=== PATIENT | male | born 1985 | race American Indian/Alaskan Native ===

== ENCOUNTER 2017-11-08 22:30 | Emergency (ER) | payer SELFPAY ==
[2017-11-08] MEDS ORDERED: NACL 0.9% 1000 ML 1,000 ML IV ONE ×2 (22:41→23:21)
[2017-11-08] MEDS ORDERED: DILAUDID IV ONE (22:41)
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
[2017-11-08 22:52] LABS: Hematocrit 47.2 % (35.5-45.6); Hemoglobin 15.7 gm/dl (11.8-15.2); Mean Corpuscular HGB Conc 33 % (32-34); Mean Corpuscular Hemoglobin 31 pg (28-32); Mean Corpuscular Volume 92 fl (84-94); Platelet Count 187 K/mm3 (140-440); Red Blood Count 5.14 M/mm3 (3.65-5.03)
[2017-11-08 22:56] LABS: INR 0.87 (0.87-1.13); Partial Thromboplastin Time 25.7 Sec. (24.2-36.6)
[2017-11-08] MEDS ORDERED: ZOSYN/NS 4.5GM/100ML 4.5 GM/100 ML VIAL IV SCH (23:00)
[2017-11-08 23:01] LABS: Alanine Aminotransferase 15 units/L (7-56); Albumin 4.6 g/dL (3.9-5); BUN/Creatinine Ratio 11; Blood Urea Nitrogen 10 mg/dL (9-20); Hemolysis Index 8
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
[2017-11-08 23:30] LABS: RBC Morphology Normal; Total Cells Counted 100
[2017-11-08 23:46] VITALS: BP 136/94
[2017-11-09] MEDS ORDERED: DILAUDID ONE (01:31)
== END 2017-11-08 23:52 | disposition other institution (70) ==
LOC: ED 22:30
DX: S31.109A Unspecified open wound of abdominal wall, unspecified quadrant without penetration into peritoneal cavity, initial encounter (principal); F17.200 Nicotine dependence, unspecified, uncomplicated; Z88.2 Allergy status to sulfonamides; W34.00XA Accidental discharge from unspecified firearms or gun, initial encounter; Y93.89 Activity, other specified; Y92.89 Other specified places as the place of occurrence of the external cause; Y99.8 Other external cause status
CPT/HCPCS: 36415; 71045; 74018; 80053; 85007; 85025; 85610; 85730; 96361; 96365; 96375; 99285; J2543; J7030; J1170